=== PATIENT | male | born 1970 | race Caucasian/White ===

== ENCOUNTER 2020-05-23 18:41 | Emergency (ER) | payer OTHER ==
[~2020-05-23] VITALS: Ht 177.8 cm; Wt 77.1 kg
[~2020-05-23 18:41] MED LIST: ADVAIR 250-501 EACH IH; DOXYCYCLINE 10100 MG PO; IBUPROFEN 600600 M1 PO; IBUPROFEN 800800 M1 PO; KAPVAY0.1 MG; NORCO 5-325 TA1 EACH PO; PREDNISONE 10 M10 M1 PO; RITALIN20 MG PO; ULTRAM 50MG TAB50 MG PO; VENTOLIN17 GM INH
[2020-05-23] MEDS ORDERED: MEDROLDOSEPACK PO (19:43)
[2020-05-23 20:07] VITALS: BP 136/73
== END 2020-05-23 20:07 | disposition home or self-care (01) ==
LOC: ER 18:41
DX: K40.90 Unilateral inguinal hernia, without obstruction or gangrene, not specified as recurrent (principal); R07.81 Pleurodynia; Z88.8 Allergy status to other drugs, medicaments and biological substances

== ENCOUNTER → 2020-08-18 | Day surgery (SDC) | payer OTHER ==
[~2020-08-18] VITALS: Ht 177.8 cm; Wt 72.6 kg
[~2020-08-18] MED LIST changes: +ACETAMINOPHEN325 M1 PO; +ADVIL200 M3 PO; +COLACE 100 MG100 MG PO; +IBUPROFEN 200200 M1 PO; +IRON325 M1 PO; +MEDROLDOSEPACK PO; +MIRALAX17 GM PO; +OXYCODONE HCL 55 MG PO; +TYLENOL EXTRA500 MG PO
[2020-08-18 09:37] VITALS: BP 133/98
[2020-08-18 12:57] VITALS: BP 133/98
--- NOTE | 2020-08-19 19:07 | PATH ---
[facility] [address] [place] [address] PATHOLOGY RPT PROCEDURE Name: DILEEP SPRING Room #: REG [facility] [place] [facility] M.R.#: [id number] Admission: 08/18/20 Date of : 66 Discharge: Report #: [id number] Path Case #: [id number] [facility] Accession Number: [id number] . 01 Material submitted: . sigmoid colon - SIGMOID COLON POLYPS . 01 Clinical history: . COLONOSCOPY POLYPECTOMY SCREENING . 02 Diagnosis: Polyps, sigmoid colon polyps, endoscopic biopsy: - Tubular adenoma identified in multiple fragments. - Negative for high-grade dysplasia. (IUV:pit; 08/19/2020) QTP 08/19/2020 1523 Local . 02 Electronically signed: . Bri Duong MD, Pathologist NPI- [id number] . 01 Gross description: . Received in formalin labeled "Dileep Spring, sigmoid colon polyp" are multiple mcgraw-brown soft tissue fragments measuring in aggregate 0.5 x 0.4 x 0.1 cm. The specimen is submitted entirely in A1. (RAMYA; 08/18/2020) RAMYA/RAMYA 08/18/2020 2223 Local . 02 Pathologist provided ICD-10: D12.5 . 02 CPT . 511902 Specimen Comment: A courtesy copy of this report has been sent to [phone], [phone] Specimen Comment: [phone] Specimen Comment: Report sent to / DR MONROY Performed at: [address], [place], [place] [id number] MD Dev Linton MD Phone: [phone] Performed at: [address] [id number] MD Bri Duong MD Phone: [phone]
== END | disposition home or self-care (01) ==
LOC: OR 08:03 → EDSTATUS 13:06 → OR 13:08
PROVIDERS: ATTEND Surgery
DX: Z12.11 Encounter for screening for malignant neoplasm of colon (principal); D12.5 Benign neoplasm of sigmoid colon; F17.210 Nicotine dependence, cigarettes, uncomplicated; Z98.890 Other specified postprocedural states; Z79.899 Other long term (current) drug therapy; Z88.8 Allergy status to other drugs, medicaments and biological substances
CPT/HCPCS: 50010; 50101; 62110; 62900; 70005

== ENCOUNTER → 2020-09-02 | Day surgery (SDC) | payer OTHER ==
[~2020-09-02] VITALS: Ht 177.8 cm; Wt 72.6 kg
[2020-09-02 11:34] VITALS: BP 158/54
[2020-09-02 14:55] VITALS: BP 158/54
== END | disposition home or self-care (01) ==
LOC: OR 09:37
PROVIDERS: ATTEND Surgery
DX: K40.90 Unilateral inguinal hernia, without obstruction or gangrene, not specified as recurrent (principal); F17.210 Nicotine dependence, cigarettes, uncomplicated; Z79.899 Other long term (current) drug therapy; Z88.8 Allergy status to other drugs, medicaments and biological substances
CPT/HCPCS: 50010; 50101; 50411; 50555; 50558; 50854; 50984; 53307; 53310; 54022; 54118; 56462; 56524; 56525; 56526; 58574; 62110; 62900; 70005